=== PATIENT | female | born 1985 | race African-American/Black ===

== ENCOUNTER 2016-07-22 07:21 | Emergency (ER) | payer OTHER | END 2016-07-22 07:24 | disposition home or self-care (01) | LOC: CED 07:21 | DX: H65.91 Unspecified nonsuppurative otitis media, right ear (principal); K08.89 Other specified disorders of teeth and supporting structures; F17.200 Nicotine dependence, unspecified, uncomplicated; Z98.890 Other specified postprocedural states | CPT/HCPCS: 99282 ==